=== PATIENT | female | born 1970 | race African-American/Black ===

== ENCOUNTER 2016-12-16 06:01 | Emergency (ER) | payer OTHER ==
[~2016-12-16] VITALS: Ht 152.4 cm; Wt 100.0 kg
[2016-12-16] MEDS ORDERED: ONDANSETRON HCL 4MG/2ML VIAL IV STA (06:43)
[2016-12-16] MEDS ORDERED: MORPHINE SULFATE 4 MG/ML CPJ (NOT FOR IM USE) IV STA (06:43)
[2016-12-16] MEDS ORDERED: ASPIRIN 81MG TABLET PO ONE (06:45)
[2016-12-16 07:01] LABS: BASOPHILS % 0.8 % (0.0-2.0); DIFFERENTIAL COMMENT 0; EOSINOPHILS % 1.2 % (0.0-5.0); HEMOGLOBIN. 12.7 g/dL (12.0-16.0); LYMPHOCYTES % 26.6 % (20.0-50.0); MEAN CORPUSCULAR HEMOGLOBIN 25.2 pg (28.0-32.0); MEAN CORPUSCULAR HGB CONC 32.6 g/dL (31.0-37.0); MEAN CORPUSCULAR VOLUME 77.4 fL (81.0-99.0); MONOCYTES % 6.7 % (2.0-8.0); NEUTROPHILS % 64.7 % (40.0-76.0); PLATELET 271 x1000/uL (130-400); RED BLOOD CELL COUNT 5.04 mill/uL (4.2-5.4); RED CELL DISTRIBUTION WIDTH 15.4 % (11.6-14.6)
[2016-12-16 07:09] LABS: PROTHROMBIN TIME 10.7 sec
[2016-12-16 07:18] LABS: ALANINE AMINOTRANSFERASE 12 IU/L (13-61); ALBUMIN 3.1 g/dL (3.4-5.0); ANION GAP 13; CALCIUM 8.8 mg/dL (8.5-10.1); CARBON DIOXIDE 29 mEq/L (21-32); CHLORIDE 103 mEq/L (98-107); INDEX HEMOLYSI 1 (1-3); INDEX ICTERIC 1 (1-4); INDEX LIPEMIC 1 (1-3); LIPASE 192 IU/L (73-393); NT PRO B-TYPE NATRIURETIC PEP 209 pg/mL (5-125); TROPONIN I < 0.02 ng/mL (0.00-0.04); UREA NITROGEN BLOOD 14 mg/dL (7-21); eGFR > 60 mL/min (>60)
[2016-12-16 08:41] LABS: HCG SCREEN NEGATIVE
[2016-12-16 11:53] VITALS: BP 143/92
== END 2016-12-16 11:56 | disposition home or self-care (01) ==
LOC: ER 06:03
DX: R07.9 Chest pain, unspecified (principal); J45.909 Unspecified asthma, uncomplicated; Z79.82 Long term (current) use of aspirin; Z88.8 Allergy status to other drugs, medicaments and biological substances
CPT/HCPCS: 36415; 71010; 80053; 83690; 83880; 84484; 84703; 85025; 85610; 93005; 96374; 96375; 99285; J2270; J2405; Z7610

== ENCOUNTER 2017-04-08 17:54 | Emergency (ER) | payer OTHER ==
[~2017-04-08] VITALS: Ht 152.4 cm; Wt 93.0 kg
[2017-04-08 18:03] VITALS: BP 165/96
== END 2017-04-08 21:20 | disposition left against medical advice (07) ==
LOC: ER 17:54
DX: R21 Rash and other nonspecific skin eruption (principal); Z53.21 Procedure and treatment not carried out due to patient leaving prior to being seen by health care provider